=== PATIENT | male | born 1965 | race Caucasian/White ===

== ENCOUNTER 2025-09-13 17:33 | Inpatient (IN) | payer MEDICAID ==
[~2025-09-13] VITALS: Ht 167.6 cm; Wt 77.1 kg
[2025-09-13 18:18] LABS: BASOPHILS % 1.5 % (0.0-2.0); EOSINOPHILS % 3.9 % (0.0-5.0); HEMATOCRIT. 33.1 % (42.0-52.0); HEMOGLOBIN. 10.8 g/dL (14.0-18.0); LYMPHOCYTES % 31.1 % (20.0-50.0); MEAN PLATELET VOLUME 7.4 fl (7.4-10.4); MONOCYTES % 8.4 % (2.0-8.0); NEUTROPHILS % 55.1 % (40.0-76.0); PLATELET 367 x1000/uL (130-400); RED BLOOD CELL COUNT 3.59 mill/uL (4.7-6.1); RED CELL DISTRIBUTION WIDTH 21.4 % (11.6-14.6)
[2025-09-13] MEDS: DEXTROSE 50% WATER 50ML SYRINGE IV ONE ×3 (18:23→20:17)
[2025-09-13] MEDS: PIPERACILLIN/TAZO 3.375G/50ML 50 ML IV ONE (18:28)
[2025-09-13] MEDS: SODIUM CHLORIDE 0.9% (SEPSIS BOLUS) IV ONE ×2 (18:29→20:15)
[2025-09-13 18:33] LABS: CREATININE 2.2 mg/dL (0.6-1.3); PROTEIN TOTAL 6.2 g/dL (6.0-8.3); UREA NITROGEN BLOOD 11 mg/dL (9-23)
[2025-09-13 18:34] LABS: TROPONIN I HIGH SENSITIVITY 9 ng/L (3.0-53)
[2025-09-13 18:35] LABS: ASPARTATE AMINOTRANSFERASE 107 IU/L (<34); BILIRUBIN DIRECT 0.1 mg/dL (<=3.0); BILIRUBIN TOTAL 0.3 mg/dL (0.1-1.0)
[2025-09-13 18:59] LABS: INR 1.6
[2025-09-13] MEDS ORDERED: SODIUM BICARBONATE 8.4% 50MEQ/50ML VIAL IV ONE (20:00)
[2025-09-13] MEDS: FUROSEMIDE 40MG/4ML VIAL IV ONE (20:15)
[2025-09-13] MEDS: CALCIUM CHLORIDE 1GM/10ML SYR IV ONE (20:15)
[2025-09-13] MEDS: VANCOMYCIN 1G PREMIX 200 ML IV ONE (20:15)
[2025-09-13] MEDS: INSULIN REGULAR (HUMULIN R) 1000UNITS/10ML VIAL IV ONE (20:16)
[2025-09-13] MEDS: SODIUM BICARBONATE 8.4% 50MEQ/50ML SYR IV NR ×2 (20:18→23:41)
[2025-09-13] MEDS: SODIUM CHLORIDE 0.9% 1,000 ML IV ONE ×2 (20:47→23:41)
[2025-09-13] MEDS: ALBUTEROL (0.5%) 2.5MG/0.5ML NEB HHN ONE (21:13)
[2025-09-13 21:14] VITALS: PULSE 150; RESP 24; O2SAT 96
[2025-09-13] MEDS ORDERED: IPRATROPIUM/ALBUTEROL 0.5-3(2.5)MG/3ML NEB HHN PRN ×2 (21:30→23:15)
[2025-09-13] MEDS: ONDANSETRON HCL 4MG/2ML INJ IV PRN (21:57)
[2025-09-13] MEDS: DEXT 5%/LACTATED RINGERS 1,000 ML IV SCH (21:58)
[2025-09-13] MEDS: ACETAMINOPHEN 1000MG/100ML 100 ML IV ONE (22:56)
[2025-09-13 23:10] LABS: BASOPHILS % 0.6 % (0.0-2.0); EOSINOPHILS % 2.4 % (0.0-5.0); HEMATOCRIT. 30.5 % (42.0-52.0); HEMOGLOBIN. 9.6 g/dL (14.0-18.0); LYMPHOCYTES % 27.4 % (20.0-50.0); MEAN PLATELET VOLUME 7.0 fl (7.4-10.4); MONOCYTES % 8.8 % (2.0-8.0); NEUTROPHILS % 60.8 % (40.0-76.0); PLATELET 324 x1000/uL (130-400); RED BLOOD CELL COUNT 3.29 mill/uL (4.7-6.1); RED CELL DISTRIBUTION WIDTH 22.1 % (11.6-14.6)
[2025-09-13] MEDS: IOHEXOL-300 50 ML BOTTLE IV ONE (23:18)
[2025-09-13 23:30] LABS: TROPONIN I HIGH SENSITIVITY 19 ng/L (3.0-53)
[2025-09-13] MEDS ORDERED: PHENYLEPHRINE 100 MG in DEXT 5% WATER 240 ML IV PRN (23:30)
[2025-09-13] MEDS ORDERED: PHENYLEPHRINE 50 MG in DEXT 5% WATER 245 ML IV PRN (23:30)
[2025-09-13] MEDS ORDERED: VASOPRESSIN 20 UNIT in SODIUM CHLORIDE 0.9% 99 ML IV PRN (23:30)
[2025-09-13 23:31] LABS: PHOSPHORUS 2.1 mg/dL (2.5-4.9)
[2025-09-13 23:34] LABS: ADD RBC MORPHOLOGY YES
[2025-09-14] VITALS (46 sets, daily range): BP systolic 57–149; BP diastolic 44–131; PULSE 89–135; RESP 15–40; TEMP 37.1–37.3; O2SAT 92–100
[2025-09-14 00:04] LABS: BG BASE EXCESS -10.7 mmol/L (-2.0-3.0); BG CARBOXYHEMOGLOBIN 0.0 % (0.5-1.5); BG DEOXYHEMOGLOBIN 2.8 % (0.0-5.0); BG HCO3 ACT 11.6 mmol/L (21.0-28.0); BG METHEMOGLOBIN 0.3 % (0.5-1.5); BG OXYGEN SATURATION 97.2 % (94.0-98.0); BG OXYHEMOGLOBIN 96.9 % (94.0-98.0); BG PCO2 17.8 mmHg (35.0-48.0); BG PH 7.431 (7.350-7.450); BG PO2 91.5 mmHg (83.0-108.0); BG SAMPLE SITE LEFT RADIAL; BG TOTAL HEMOGLOBIN 10.2 g/dL (13.5-17.5); BG VENT MODE ROOM AIR
[2025-09-14 00:05] LABS: CREATININE 2.3 mg/dL (0.6-1.3); UREA NITROGEN BLOOD 11.0 mg/dL (9-23)
[2025-09-14 00:08] LABS: FOLIC ACID (FOLATE) SERUM 3.69 ng/mL (>5.38)
[2025-09-14 00:10] LABS: VITAMIN B12 SERUM 1264 pg/mL (211-911)
[2025-09-14] MEDS: SODIUM BICARBONATE 8.4% 50MEQ/50ML SYR IV SCH (00:14)
[2025-09-14] MEDS ORDERED: PIPERACILLIN/TAZO 3.375G/50ML 50 ML IV SCH (02:00)
[2025-09-14] MEDS: SODIUM CHLORIDE 0.9% 500 ML IV ONE (02:09)
[2025-09-14] MEDS: MEROPENEM 1G/100ML 100 ML IV SCH ×2 (02:27→09:50)
[2025-09-14] MEDS: SODIUM PHOSPHATE 30 MMOL in DEXT 5% WATER 500 ML IV NR (02:28)
[2025-09-14] MEDS: MAGNESIUM 4 G PREMIX 100 ML IV NR (02:28)
[2025-09-14] MEDS: DEXTROSE 50% WATER 50ML SYRINGE IV PRN (02:36)
[2025-09-14] MEDS ORDERED: MAGNESIUM 1 G PREMIX 100 ML IV NR (03:15)
[2025-09-14] MEDS ORDERED: SODIUM CHLORIDE 0.9% 1,000 ML IV SCH (03:15)
[2025-09-14] MEDS: PHENYLEPHRINE 100 MG in DEXT 5% WATER 240 ML IV PRN (03:26)
[2025-09-14] MEDS: SODIUM CHLORIDE 0.9% 1,000 ML IV ONE (03:27)
[2025-09-14 03:44] LABS: CREATININE 2.3 mg/dL (0.6-1.3); UREA NITROGEN BLOOD 9.0 mg/dL (9-23)
[2025-09-14] MEDS: SODIUM POLYSTYRENE SULFONATE 15 G/60 ML BOT PO NR (04:22)
[2025-09-14] MEDS: SODIUM BICARBONATE 8.4% 50MEQ/50ML SYR IV NR (04:23)
[2025-09-14] MEDS: CALCIUM GLUCONATE 1,000 MG in DEXT 5% WATER 90 ML IV NR (04:58)
[2025-09-14] MEDS: SODIUM CHLORIDE 0.9% 1,000 ML IV SCH ×2 (05:17→23:31)
[2025-09-14 06:40] LABS: BASOPHILS % 0.7 % (0.0-2.0); EOSINOPHILS % 3.8 % (0.0-5.0); HEMATOCRIT. 26.0 % (42.0-52.0); HEMOGLOBIN. 8.4 g/dL (14.0-18.0); LYMPHOCYTES % 23.6 % (20.0-50.0); MEAN PLATELET VOLUME 7.1 fl (7.4-10.4); MONOCYTES % 8.4 % (2.0-8.0); NEUTROPHILS % 63.5 % (40.0-76.0); PLATELET 296 x1000/uL (130-400); RED BLOOD CELL COUNT 2.82 mill/uL (4.7-6.1); RED CELL DISTRIBUTION WIDTH 21.7 % (11.6-14.6)
[2025-09-14] MEDS ORDERED: LIDOCAINE HCL 1% 10 MG/ML 10ML VIAL ONE (07:09)
[2025-09-14 09:49] LABS: PLATELET ESTIMATE NORMAL
[2025-09-14] MEDS: FOLIC ACID 1MG TABLET PO SCH ×2 (09:50→10:30)
[2025-09-14] MEDS: FAMOTIDINE 20MG/2ML VIAL IV SCH (09:50)
[2025-09-14] MEDS ORDERED: FOLIC ACID 1MG TABLET PO ONE (10:15)
[2025-09-14] MEDS: SODIUM BICARBONATE 100 MEQ in DEXTROSE 5% WATER 900 ML IV SCH (10:37)
[2025-09-14] MEDS: SODIUM CHLORIDE 0.45% 500 ML IV ONE (11:45)
[2025-09-14] MEDS: BLOOD SUGAR DIAGNOSTIC STRIP TEST SCH ×2 (12:00)
[2025-09-14] MEDS: MIDODRINE HCL 5MG TABLET PO SCH (16:32)
[2025-09-14 17:40] LABS: CREATININE 2.1 mg/dL (0.6-1.3); UREA NITROGEN BLOOD 8 mg/dL (9-23)
[2025-09-14 17:43] LABS: PHOSPHORUS 5.2 mg/dL (2.5-4.9); TRIGLYCERIDE 260 mg/dL (0-150)
[2025-09-14 17:44] LABS: LDL CHOLESTEROL 96 mg/dL (5-100)
[2025-09-14 17:48] LABS: T4 FREE 1.10 ng/dL (0.89-1.76)
[2025-09-14] MEDS: VANCOMYCIN 750MG PREMIX 150 ML IV SCH (18:42)
[2025-09-15] VITALS (100 sets, daily range): BP systolic 78–129; BP diastolic 40–93; PULSE 76–111; RESP 6–40; TEMP 36.8–37.3; O2SAT 81–100
[2025-09-15 01:44] LABS: CREATININE 1.8 mg/dL (0.6-1.3); UREA NITROGEN BLOOD 8.0 mg/dL (9-23)
[2025-09-15] MEDS: SODIUM CHLORIDE 0.9% 1,000 ML IV SCH (04:51)
[2025-09-15] MEDS ORDERED: MIDODRINE HCL 5MG TABLET PO SCH (08:00)
[2025-09-15] MEDS: ACETAMINOPHEN 325MG TABLET PO PRN ×2 (08:10→18:41)
[2025-09-15] MEDS: MAGNESIUM OXIDE 400MG TABLET PO SCH (08:10)
[2025-09-15] MEDS: MIDODRINE HCL 5MG TABLET PO SCH (08:11)
[2025-09-15 08:29] LABS: BASOPHILS % 0.5 % (0.0-2.0); EOSINOPHILS % 8.2 % (0.0-5.0); HEMATOCRIT. 27.8 % (42.0-52.0); HEMOGLOBIN. 9.1 g/dL (14.0-18.0); LYMPHOCYTES % 23.6 % (20.0-50.0); MEAN PLATELET VOLUME 7.4 fl (7.4-10.4); MONOCYTES % 11.2 % (2.0-8.0); NEUTROPHILS % 56.5 % (40.0-76.0); PLATELET 269 x1000/uL (130-400); RED BLOOD CELL COUNT 3.04 mill/uL (4.7-6.1); RED CELL DISTRIBUTION WIDTH 22.1 % (11.6-14.6)
[2025-09-15 08:46] LABS: ADD RBC MORPHOLOGY NO
[2025-09-15 08:55] LABS: CREATININE 1.8 mg/dL (0.6-1.3)
[2025-09-15 08:56] LABS: TROPONIN I HIGH SENSITIVITY 13 ng/L (3.0-53); UREA NITROGEN BLOOD 7 mg/dL (9-23)
[2025-09-15 08:58] LABS: PHOSPHORUS 3.8 mg/dL (2.5-4.9)
[2025-09-15] MEDS: MAGNESIUM 2 G PREMIX 50 ML IV NR (10:24)
[2025-09-15] MEDS: ENOXAPARIN 40MG/0.4ML SYR SUBCUT SCH (16:02)
[2025-09-15] MEDS: ONDANSETRON HCL 4MG/2ML INJ IV PRN (16:57)
[2025-09-16] VITALS (100 sets, daily range): BP systolic 80–126; BP diastolic 38–83; PULSE 85–121; RESP 10–42; TEMP 36.6–37.6; O2SAT 95–100
[2025-09-16 05:46] LABS: BASOPHILS % 1.4 % (0.0-2.0); EOSINOPHILS % 12.2 % (0.0-5.0); HEMATOCRIT. 29.6 % (42.0-52.0); HEMOGLOBIN. 9.7 g/dL (14.0-18.0); LYMPHOCYTES % 25.7 % (20.0-50.0); MEAN PLATELET VOLUME 7.1 fl (7.4-10.4); MONOCYTES % 9.8 % (2.0-8.0); NEUTROPHILS % 50.9 % (40.0-76.0); PLATELET 242 x1000/uL (130-400); RED BLOOD CELL COUNT 3.24 mill/uL (4.7-6.1); RED CELL DISTRIBUTION WIDTH 22.4 % (11.6-14.6)
[2025-09-16 06:03] LABS: CREATININE 1.4 mg/dL (0.6-1.3); UREA NITROGEN BLOOD 7.0 mg/dL (9-23)
[2025-09-16] MEDS: POTASSIUM CHLORIDE 20MEQ TABLET SR PO SCH (13:35)
[2025-09-16] MEDS: KCL 20MEQ/100ML PREMIX 100 ML IV ONE (13:35)
[2025-09-16] MEDS: BLOOD SUGAR DIAGNOSTIC STRIP TEST SCH (20:35)
[2025-09-16] MEDS: MIDODRINE HCL 5MG TABLET PO SCH (21:07)
[2025-09-16] MEDS: SODIUM CHLORIDE 0.9% 1,000 ML IV ONE (22:44)
[2025-09-17] VITALS (94 sets, daily range): BP systolic 84–148; BP diastolic 40–122; PULSE 94–118; RESP 15–47; TEMP 36.8–37.6; O2SAT 93–100
[2025-09-17 05:46] LABS: BASOPHILS % 0.7 % (0.0-2.0); EOSINOPHILS % 10.9 % (0.0-5.0); HEMATOCRIT. 30.0 % (42.0-52.0); HEMOGLOBIN. 9.7 g/dL (14.0-18.0); LYMPHOCYTES % 35.3 % (20.0-50.0); MEAN PLATELET VOLUME 7.0 fl (7.4-10.4); MONOCYTES % 8.8 % (2.0-8.0); NEUTROPHILS % 44.3 % (40.0-76.0); PLATELET 206 x1000/uL (130-400); RED BLOOD CELL COUNT 3.23 mill/uL (4.7-6.1); RED CELL DISTRIBUTION WIDTH 22.0 % (11.6-14.6)
[2025-09-17 06:02] LABS: CREATININE 1.0 mg/dL (0.6-1.3); UREA NITROGEN BLOOD 5 mg/dL (9-23)
[2025-09-17 06:10] LABS: ADD RBC MORPHOLOGY YES
[2025-09-17] MEDS: DEXT 5%/LACTATED RINGERS 1,000 ML IV SCH (09:47)
[2025-09-17] MEDS: DEXT 5%/0.9% NACL 1,000 ML IV ONE (09:48)
[2025-09-17 10:24] LABS: PLATELET ESTIMATE NORMAL
[2025-09-17] MEDS: VANCOMYCIN 1.25GM/250ML 250 ML IV SCH (16:42)
[2025-09-17] MEDS: MEROPENEM 1G/100ML 100 ML IV SCH (16:43)
[2025-09-18] VITALS (62 sets, daily range): BP systolic 111–156; BP diastolic 61–116; PULSE 98–122; RESP 7–42; TEMP 36.9–37.4; O2SAT 84–98
[2025-09-18 06:19] LABS: BASOPHILS % 2.0 % (0.0-2.0); EOSINOPHILS % 9.5 % (0.0-5.0); HEMATOCRIT. 29.3 % (42.0-52.0); HEMOGLOBIN. 9.5 g/dL (14.0-18.0); LYMPHOCYTES % 38.5 % (20.0-50.0); MEAN PLATELET VOLUME 7.4 fl (7.4-10.4); MONOCYTES % 8.3 % (2.0-8.0); NEUTROPHILS % 41.7 % (40.0-76.0); PLATELET 180 x1000/uL (130-400); RED BLOOD CELL COUNT 3.15 mill/uL (4.7-6.1); RED CELL DISTRIBUTION WIDTH 21.9 % (11.6-14.6)
[2025-09-18 06:33] LABS: CREATININE 0.7 mg/dL (0.6-1.3); UREA NITROGEN BLOOD < 5 mg/dL (9-23)
[2025-09-18] MEDS: MIDODRINE HCL 5MG TABLET PO SCH (11:32)
== END 2025-09-18 20:00 | disposition short-term general hospital (02) | DRG 721 ==
LOC: ER 17:33 → CVICU 21:22 → EDBEDREQSVC 21:59 → EDBEDREQ 21:59 → EDBEDREQTM 21:59 → ENRESERV 23:50
PROVIDERS: ADMIT Hospitalist; ATTEND Hospitalist
PROC: 02H633Z Insertion of Infusion Device into Right Atrium, Percutaneous Approach (ICD-10-PCS; principal; 2025-09-14)
PROC: B548ZZA Ultrasonography of Superior Vena Cava, Guidance (ICD-10-PCS; 2025-09-14)
DX: T80.211A Bloodstream infection due to central venous catheter, initial encounter (principal); R65.21 Severe sepsis with septic shock; N17.0 Acute kidney failure with tubular necrosis; J69.0 Pneumonitis due to inhalation of food and vomit; G93.41 Metabolic encephalopathy; I82.611 Acute embolism and thrombosis of superficial veins of right upper extremity; M46.24 Osteomyelitis of vertebra, thoracic region; D68.9 Coagulation defect, unspecified; A41.9 Sepsis, unspecified organism; J18.9 Pneumonia, unspecified organism; D64.9 Anemia, unspecified; I10 Essential (primary) hypertension; M62.82 Rhabdomyolysis; E87.21 Acute metabolic acidosis; I48.92 Unspecified atrial flutter; E53.8 Deficiency of other specified B group vitamins; E83.42 Hypomagnesemia; E83.52 Hypercalcemia; E16.2 Hypoglycemia, unspecified; E87.5 Hyperkalemia; Z74.01 Bed confinement status; Z79.899 Other long term (current) drug therapy; Z86.14 Personal history of Methicillin resistant Staphylococcus aureus infection; Z98.1 Arthrodesis status
CPT/HCPCS: 36415; 36573; 36600; 71045; 72132; 76770; 80048; 80061; 80076; 80202; 82140; 82375; 82550; 82607; 82728; 82746; 82805; 82962; 83036; 83540; 83550; 83605; 83735; 83880; 84100; 84145; 84439; 84443; 84484; 85025; 85044; 85379; 85384; 85651; 86850; 86900; 87070; 93005; 93306; 93970; 93971; 94070; 94640; 99291; A4606; C1725; J0612; J1308; J1650; J1815; J1938; J2003; J2185; J2371; J2405; J2543; J3373; J3475; J3480; J3490; J7030; J7060; J7070; J7121; Q9967; J0131